=== PATIENT | female | born 2000 | race Two or more races ===

== ENCOUNTER 2021-10-30 19:25 | Observation (INO) | payer MEDICAID, OTHER ==
[~2021-10-30] VITALS: Ht 167.6 cm; Wt 98.9 kg
[2021-10-30 21:33] LABS: Basophils # (auto) 0 10 ^3/uL (0-0.2); Eosinophils # (auto) 0 10 ^3/uL (0-0.8); Hemoglobin 12.4 g/dL (12.2-16.2); Lymphocytes # (auto) 2.6 10 ^3/uL (0.4-5.4); Neutrophils # (auto) 7.5 10 ^3/uL (1.6-8.6)
[2021-10-30 21:34] LABS: Basophils % (auto) 0.2 % (0.0-2.0); Eosinophils % (auto) 0.4 % (0.0-7.0); Lymphocytes % (auto) 24.1 % (10.0-50.0); Mean Corpuscular Hemoglobin 25.1 pg (28.0-32.0); Mean Corpuscular Hgb Conc. 33.4 g/dL (32.0-36.0); Mean Corpuscular Volume 75.2 fL (80.0-100.0); Monocytes # (auto) 0.5 10 ^3/uL (0-1.3); Monocytes % (auto) 4.6 % (0.0-12.0); Neutrophils % (auto) 70.7 % (37.0-80.0); Nucleated Red Blood Cells % 0.1 %; Red Blood Cells 4.92 10^6/uL (4.0-5.20); Red Cell Distribution Width 15.4 % (11.8-14.3); White Blood Cell 10.6 10^3/uL (4.4-10.8)
[2021-10-30 21:46] LABS: Albumin 3.1 g/dL (3.4-5.0); BUN/Creatinine Ratio 11.9; Calcium 9.2 mg/dL (8.5-10.1); Potassium 3.9 mmol/L (3.5-5.1)
[2021-10-30 21:49] LABS: Bilirubin, Total 0.3 mg/dL (0.2-1.0); Total Protein 7.7 g/dL (6.4-8.2)
[2021-10-30 21:51] LABS: Urine Bacteria FEW /hpf (None Seen); Urine Blood Negative /uL (Negative); Urine Mucus FEW (None Seen); Urine Specific Gravity 1.019 (1.001-1.035); Urine WBC 5 /hpf (0 - 5)
[2021-10-30 22:06] LABS: INR 0.93 (0.9-1.15); Partial Thromboplastin Time 25.6 sec (23.6-33.0)
[2021-10-30 22:25] LABS: Alcohol, Urine < 3.0 mg/dL (0-10); Amphetamine Screen, Urine NEGATIVE (NEGATIVE); Barbiturate Scree,Urine NEGATIVE (NEGATIVE); Benzodiazephine Screen, Urine NEGATIVE (NEGATIVE); Cannabinoid Screen, Urine NEGATIVE (NEGATIVE); Cocaine Screen, Urine NEGATIVE (NEGATIVE); Opiate Scree,Urine NEGATIVE (NEGATIVE); Phencyclidine Screen, Urine NEGATIVE (NEGATIVE)
[2021-11-01 06:07] LABS: RPR Non Reactive (Non Reactive)
[2021-11-01 07:06] LABS: Rubella Antibodies, IgG 4.92 index (Immune >0.99)
== END 2021-10-30 21:49 | disposition home or self-care (01) ==
LOC: LDRP 19:25
PROVIDERS: ADMIT Obstetrics & Gynecology; ATTEND Obstetrics & Gynecology
DX: O48.0 Post-term pregnancy (principal); Z3A.38 38 weeks gestation of pregnancy; Z79.899 Other long term (current) drug therapy
CPT/HCPCS: 36415; 59025; 76805; 80053; 80307; 81001; 81002; 85025; 85610; 85730; 86592; 86703; 86762; 86850; 86900; 86901; 87081; 87340; 94760; G0378

== ENCOUNTER 2021-11-03 11:45 | Inpatient (IN) | payer MEDICAID ==
[2021-11-03] VITALS (13 sets, daily range): BP systolic 97–128; BP diastolic 59–79
[~2021-11-03] VITALS: Ht 167.6 cm; Wt 98.9 kg
[2021-11-03] MEDS ORDERED: ceFAZolin 1GM/50ML 50 ML IV ONE ×2 (12:30→12:59)
[2021-11-03] MEDS ORDERED: PHISODERM TOP SOLN 240ML BTL TOP PRN (12:30)
[2021-11-03] MEDS ORDERED: WITCH HAZEL-GLYCERIN PAD TOP PRN (12:30)
[2021-11-03] MEDS ORDERED: DERMOPLAST 60ML BOTTLE TOP PRN (12:30)
[2021-11-03] MEDS ORDERED: LACTATED RINGER'S 1,000 ML IV SCH ×2 (12:30)
[2021-11-03] MEDS ORDERED: PROMETHAZINE HCL 25 MG/ML 1ML IV PRN (12:30)
[2021-11-03] MEDS ORDERED: LACTATED RINGER'S 1,000 ML IV ONE (12:30)
[2021-11-03] MEDS ORDERED: PENICILLIN G POT 5MIL/D5 50ML 50 ML IV ONE (12:30)
[2021-11-03] MEDS ORDERED: BUTORPHANOL TARTRATE 2 MG/1 ML VIAL IV PRN ×2 (12:30)
[2021-11-03] MEDS ORDERED: LIDOCAINE 2%HCL (LOCAL ANESTH.) INJ 20ML MDV IJ PRN (12:30)
[2021-11-03] MEDS ORDERED: TETRACAINE 1% INJ 2 ML VIAL IJ ONE (13:07)
[2021-11-03] MEDS ORDERED: FAMOTIDINE (10MG/ML) 2ML VL IV ONE (13:07)
[2021-11-03] MEDS ORDERED: MORPHINE SULF PF 2 MG/2 ML SYRG ONE (13:08)
[2021-11-03] MEDS ORDERED: fentaNYL CITRATE 100 MCG/2 ML VL ONE (13:09)
[2021-11-03] MEDS ORDERED: ONDANSETRON HCL 4 MG/2 ML VIAL ONE (13:10)
[2021-11-03] MEDS ORDERED: GLYCOPYRROLATE 0.2 MG/ML 1ML VIAL ONE (13:10)
[2021-11-03] MEDS ORDERED: oxyTOCIN 10 UNIT/ML 10ML VIAL ONE (13:10)
[2021-11-03] MEDS ORDERED: ePHEDrine SULFATE 50 MG/ML AMP ONE (13:10)
[2021-11-03 13:13] LABS: Basophils # (auto) 0 10 ^3/uL (0-0.2); Basophils % (auto) 0.1 % (0.0-2.0); Eosinophils # (auto) 0 10 ^3/uL (0-0.8); Eosinophils % (auto) 0.5 % (0.0-7.0); Hematocrit 36.4 % (36.0-46.0); Lymphocytes # (auto) 1.9 10 ^3/uL (0.4-5.4); Lymphocytes % (auto) 21.3 % (10.0-50.0); Mean Corpuscular Hemoglobin 24.6 pg (28.0-32.0); Mean Corpuscular Volume 74.5 fL (80.0-100.0); Monocytes # (auto) 0.5 10 ^3/uL (0-1.3); Monocytes % (auto) 5.5 % (0.0-12.0); Neutrophils # (auto) 6.4 10 ^3/uL (1.6-8.6); Neutrophils % (auto) 72.6 % (37.0-80.0); Nucleated Red Blood Cells % 0.1 %; Red Blood Cells 4.88 10^6/uL (4.0-5.20); Red Cell Distribution Width 15.8 % (11.8-14.3); White Blood Cell 8.8 10^3/uL (4.4-10.8)
[2021-11-03 13:20] LABS: Urine Bacteria FEW /hpf (None Seen); Urine Blood Negative /uL (Negative); Urine Mucus FEW (None Seen); Urine Specific Gravity 1.023 (1.001-1.035); Urine Sperm PRESENT /hpf (None Seen); Urine WBC 8 /hpf (0 - 5)
[2021-11-03] MEDS ORDERED: PREN-96 PO (13:22)
[2021-11-03 13:23] LABS: Potassium 4.6 mmol/L (3.5-5.1)
[2021-11-03 13:27] LABS: Albumin 2.7 g/dL (3.4-5.0); BUN/Creatinine Ratio 12.1; INR 0.92 (0.9-1.15); Partial Thromboplastin Time 26.1 sec (23.6-33.0)
[2021-11-03 13:28] LABS: Alcohol, Urine < 3.0 mg/dL (0-10); Amphetamine Screen, Urine NEGATIVE (NEGATIVE); Barbiturate Scree,Urine NEGATIVE (NEGATIVE); Benzodiazephine Screen, Urine NEGATIVE (NEGATIVE); Cannabinoid Screen, Urine NEGATIVE (NEGATIVE); Cocaine Screen, Urine NEGATIVE (NEGATIVE); Opiate Scree,Urine NEGATIVE (NEGATIVE); Phencyclidine Screen, Urine NEGATIVE (NEGATIVE)
[2021-11-03 13:30] LABS: Bilirubin, Total 0.2 mg/dL (0.2-1.0); Total Protein 6.8 g/dL (6.4-8.2)
[2021-11-03] MEDS ORDERED: ceFAZolin 1GM/50ML 50 ML IV SCH (13:30)
[2021-11-03] MEDS ORDERED: ONDANSETRON HCL 4 MG/2 ML VIAL IV PRN ×4 (13:30→16:30)
[2021-11-03] MEDS ORDERED: LACT. RINGERS/OXYTOCIN 20UNITS 1,000 ML IV ONE (13:30)
[2021-11-03] MEDS ORDERED: IBUP800T27 PO (14:15)
[2021-11-03] MEDS ORDERED: DOCU-94 PO (14:15)
[2021-11-03] MEDS ORDERED: HYDR-4902 PO (14:15)
[2021-11-03] MEDS ORDERED: diphenhdrAMINE HCL 50 MG/1 ML VL IV PRN (14:30)
[2021-11-03] MEDS ORDERED: DexAMETHasone SOD PHOS 10MG/1ML VIAL INJ IV PRN (14:30)
[2021-11-03] MEDS ORDERED: KETOROLAC TROMETH 30 MG/ML 1ML VIAL IV ONE (14:30)
[2021-11-03] MEDS ORDERED: KETOROLAC TROMETH 30 MG/ML 1ML VIAL IV PRN (14:30)
[2021-11-03] MEDS ORDERED: NALOXONE HCL 0.4 MG/ML VIAL IV PRN (14:30)
[2021-11-03] MEDS ORDERED: diphenhdrAMINE HCL 50 MG/1 ML VL IV ONE (16:30)
[2021-11-03] MEDS ORDERED: PENICILLIN G POTASSIUM 2,500,000 UNITS in D5W 5% 50 ML IV SCH (16:30)
[2021-11-03] MEDS ORDERED: ACETAMINOPHEN IV 1000 MG/100ML (10MG/ML) IV SCH ×2 (17:00→22:00)
[2021-11-03] MEDS: ceFAZolin 1GM/50ML 50 ML IV SCH (21:12)
[2021-11-03 23:41] LABS: Basophils # (auto) 0 10 ^3/uL (0-0.2); Basophils % (auto) 0.2 % (0.0-2.0); Eosinophils # (auto) 0 10 ^3/uL (0-0.8); Eosinophils % (auto) 0.1 % (0.0-7.0); Hematocrit 33.5 % (36.0-46.0); Lymphocytes # (auto) 2.6 10 ^3/uL (0.4-5.4); Lymphocytes % (auto) 20.4 % (10.0-50.0); Mean Corpuscular Hemoglobin 24.7 pg (28.0-32.0); Mean Corpuscular Hgb Conc. 32.8 g/dL (32.0-36.0); Mean Corpuscular Volume 75.3 fL (80.0-100.0); Monocytes # (auto) 0.5 10 ^3/uL (0-1.3); Monocytes % (auto) 4.2 % (0.0-12.0); Neutrophils # (auto) 9.7 10 ^3/uL (1.6-8.6); Neutrophils % (auto) 75.1 % (37.0-80.0); Red Blood Cells 4.45 10^6/uL (4.0-5.20); Red Cell Distribution Width 15.5 % (11.8-14.3); White Blood Cell 12.9 10^3/uL (4.4-10.8)
[2021-11-04] VITALS (20 sets, daily range): BP systolic 96–119; BP diastolic 49–79
[2021-11-04] MEDS ORDERED: ACETAMINOPHEN IV 1000 MG/100ML (10MG/ML) IV PRN (05:00)
[2021-11-04] MEDS: ceFAZolin 1GM/50ML 50 ML IV SCH ×2 (05:12→13:26)
[2021-11-04 06:47] LABS: Basophils # (auto) 0 10 ^3/uL (0-0.2); Basophils % (auto) 0.3 % (0.0-2.0); Eosinophils # (auto) 0 10 ^3/uL (0-0.8); Eosinophils % (auto) 0.3 % (0.0-7.0); Hematocrit 30.4 % (36.0-46.0); Hemoglobin 10.3 g/dL (12.2-16.2); Lymphocytes # (auto) 2.4 10 ^3/uL (0.4-5.4); Lymphocytes % (auto) 24.6 % (10.0-50.0); Mean Corpuscular Hemoglobin 25.4 pg (28.0-32.0); Mean Corpuscular Hgb Conc. 33.9 g/dL (32.0-36.0); Mean Corpuscular Volume 74.9 fL (80.0-100.0); Monocytes # (auto) 0.5 10 ^3/uL (0-1.3); Monocytes % (auto) 5.7 % (0.0-12.0); Neutrophils # (auto) 6.6 10 ^3/uL (1.6-8.6); Neutrophils % (auto) 69.1 % (37.0-80.0); Red Blood Cells 4.05 10^6/uL (4.0-5.20); Red Cell Distribution Width 15.8 % (11.8-14.3); White Blood Cell 9.6 10^3/uL (4.4-10.8)
[2021-11-04] MEDS ORDERED: LACTATED RINGER'S 1,000 ML IV SCH (07:00)
[2021-11-04] MEDS ORDERED: BISACODYL 10 MG RECT SUPP PR PRN (12:30)
[2021-11-04] MEDS ORDERED: HYDROcodone-ACET 5/325MG TAB PO PRN (12:30)
[2021-11-04] MEDS: HYDROcodone-ACET 5/325MG TAB PO PRN ×2 (13:57→21:45)
[2021-11-04] MEDS: IBUPROFEN 800 MG TAB PO PRN (17:43)
[2021-11-04] MEDS: SIMETHICONE 80 MG CHEWABLE TABLET PO SCH ×2 (17:54→21:45)
[2021-11-04] MEDS: DOCUSATE SOD 100 MG CAP PO SCH (21:45)
[2021-11-05] MEDS: IBUPROFEN 800 MG TAB PO PRN ×3 (01:41→19:51)
[2021-11-05 02:46] VITALS: BP 117/57
[2021-11-05 05:07] LABS: Rubella Antibodies, IgG 3.79 index (Immune >0.99)
[2021-11-05] MEDS: SIMETHICONE 80 MG CHEWABLE TABLET PO SCH ×3 (05:32→19:50)
[2021-11-05] MEDS: HYDROcodone-ACET 5/325MG TAB PO PRN ×2 (05:33→15:41)
[2021-11-05 06:06] LABS: RPR Non Reactive (Non Reactive)
[2021-11-05 06:45] VITALS: BP 105/78
[2021-11-05] MEDS: DOCUSATE SOD 100 MG CAP PO SCH (09:53)
[2021-11-05] MEDS: DOCUSATE CALCIUM 240 MG CAP PO SCH (09:53)
[2021-11-05 10:30] VITALS: BP 109/72
[2021-11-05 15:30] VITALS: BP 119/73
[2021-11-05 18:30] VITALS: BP 103/72
[2021-11-05 23:05] VITALS: BP 119/58
[2021-11-06] MEDS: DOCUSATE SOD 100 MG CAP PO SCH ×2 (00:03→10:19)
[2021-11-06] MEDS: SIMETHICONE 80 MG CHEWABLE TABLET PO SCH ×2 (00:03→06:00)
[2021-11-06 03:20] VITALS: BP 114/70
[2021-11-06] MEDS: HYDROcodone-ACET 5/325MG TAB PO PRN (03:51)
[2021-11-06 07:13] VITALS: BP 118/74
[2021-11-06] MEDS: DOCUSATE CALCIUM 240 MG CAP PO SCH (10:19)
[2021-11-06 11:00] VITALS: BP 115/74
== END 2021-11-06 12:45 | disposition home or self-care (01) | DRG 540 ==
LOC: UNDOADMOB 11:45 → LDRP 11:45 → INTOOBSV 11:45 → OBSVTOIN 11:45 → LDRP 11:46 → UNDODISIN 11-06 09:45 → EDSTATUS 11-21 20:05
PROVIDERS: ADMIT Obstetrics & Gynecology; ATTEND Obstetrics & Gynecology
PROC: 10D00Z1 Extraction of Products of Conception, Low, Open Approach (ICD-10-PCS; principal; 2021-11-03 13:21)
DX: O98.32 Other infections with a predominantly sexual mode of transmission complicating childbirth (principal); R71.0 Precipitous drop in hematocrit; A60.00 Herpesviral infection of urogenital system, unspecified; O69.81X0 Labor and delivery complicated by cord around neck, without compression, not applicable or unspecified; Z37.0 Single live birth; Z20.822 Contact with and (suspected) exposure to COVID-19; Z3A.39 39 weeks gestation of pregnancy
CPT/HCPCS: 36415; 59025; 80053; 80307; 81001; 81002; 82962; 85025; 85610; 85730; 86592; 86703; 86762; 86850; 86900; 86901; 87340; 94760; 96360; 96361; 96366; 96374; 96375; G0378; J0131; J0690; J1885; J2405; J2590; J3490; J7060